=== PATIENT | male | born 1990 | race Hispanic/Latino ===

== ENCOUNTER 2017-03-07 22:44 | Observation (INO) | payer BC ==
[2017-03-07 23:56] LABS: HEMATOCRIT 46.8 % (35.0-51.0); MEAN CELL VOLUME 92.5 fl (80.0-94.0); MEAN CORPUSCULAR HEMOGLOBIN 30.6 pg (27.0-31.0); MEAN CORPUSCULAR HGB CONC 33.1 g/dL (33.0-37.0); RED CELL DISTRIBUTION WIDTH 13.3 % (11.5-14.5)
[2017-03-08 00:13] LABS: ALB/GLOB RATIO 1.4 (1.0-2.1); ALKALINE PHOSPHATASE 52 U/L (38-126); ALT/SGPT 40 U/L (21-72); AST/SGOT 36 U/L (17-59); BILIRUBIN,TOTAL 0.7 mg/dl (0.2-1.3); BLOOD UREA NITROGEN 23 mg/dl (9-20); CALCIUM 10.1 mg/dL (8.4-10.2); CARBON DIOXIDE 29 mmol/L (22-30); CHLORIDE 100 mmol/L (98-107); GFR AFRICAN-AMERICAN > 60; GLUCOSE,RANDOM 99 mg/dL (75-110); POTASSIUM 4.2 MMOL/L (3.6-5.0); SODIUM 142 mmol/l (132-148); TOTAL PROTEIN 7.8 G/DL (6.3-8.2)
--- NOTE | 2017-03-08 01:19 | ED PDOC ---
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 PT has a superficial clot in his leg and was seen by [facility] [facility] but never put on a daily medications. Pt states his sister has the same and had a PE. PT reports his father also having clots in the past. Past Medical History Reviewed: Historical Data, Nursing Documentation, Vital Signs Vital Signs: Last Vital Signs Temp 98 F 03/07/17 22:45 Pulse 50 L 03/07/17 22:45 Resp 18 03/07/17 22:45 BP 140/80 03/07/17 22:45 Pulse Ox 98 03/08/17 01:23 - Medical History PMH: No Chronic Diseases - Surgical History Surgical History: No Surg Hx - Family History Family History: States: No Known Family Hx - Living Arrangements Living Arrangements: With Family - Social History Current smoker - smoking cessation education provided: No - Allergies Allergies/Adverse Reactions: Allergies Allergy/AdvReac Type Severity Reaction Status Date / Time No Known Allergies Allergy Verified 03/07/17 22:45 Review of Systems ROS Statement: Except As Marked, All Systems Reviewed And Found Negative Constitutional: Negative for: Fever, Chills Cardiovascular: Positive for: Chest Pain Respiratory: Negative for: Cough, Shortness of Breath Skin: Negative for: Rash Physical Exam - Reviewed Nursing Documentation Reviewed: Yes Vital Signs Reviewed: Yes - Physical Exam Appears: Positive for: Well, Non-toxic, No Acute Distress Head Exam: Positive for: ATRAUMATIC, NORMAL INSPECTION, NORMOCEPHALIC Skin: Positive for: Normal Color, Warm, DRY Eye Exam: Positive for: Normal appearance ENT: Positive for: Normal ENT Inspection Neck: Positive for: Normal, Painless ROM Cardiovascular/Chest: Positive for: Regular Rate, Rhythm, Chest Non Tender Respiratory: Positive for: CNT, Normal Breath Sounds Gastrointestinal/Abdominal: Positive for: Normal Exam, Bowel Sounds, Soft Back: Positive for: Normal Inspection Extremity: Positive for: Normal ROM Neurologic/Psych: Positive for: Alert, Oriented - Laboratory Results Result Diagrams: 03/07/17 23:53 03/07/17 23:53 - ECG O2 Sat by Pulse Oximetry: 98 Medical Decision Making Medical Decision Making: (+) PE on CT chest. Lovanox ordered. Admission to telemetry. Disposition - Clinical Impression Clinical Impression: Pulmonary embolism - Patient ED Disposition Is Patient to be Admitted: Yes - Disposition Disposition Time: 03:20 Condition: STABLE - Pt Status Changed To: Hospital Disposition Of: Inpatient - Admit Certification Admit to Inpatient:: After my assessment, the patient will require hospitalization for at least two midnights. This is because of the severity of symptoms shown, intensity of services needed, and/or the medical risk in this patient being treated as an outpatient. - POA Present On Arrival: None
[2017-03-08] MEDS ORDERED: Iodixanol 320 mg/ml 50 ml Sol IV ONE (01:38)
[2017-03-08] MEDS ORDERED: Sodium Chloride 0.9% 50 ML IV ONE (01:38)
[2017-03-08] MEDS ORDERED: Enoxaparin 80 mg Syringe SC STA (03:07)
--- NOTE | 2017-03-08 09:47 | CT ---
PROCEDURE: CT Chest with contrast (Pulmonary Angiogram) HISTORY: right pleuritic chest pain COMPARISON: None available. TECHNIQUE: Axial computed tomography images were obtained of the chest in the pulmonary arterial phase of enhancement. Coronal and sagittal reformatted images were created and reviewed. Intravenous contrast dose: Visipaque 320, 95 cc. Radiation dose: Total exam DLP = 406.54 mGy-cm. This CT exam was performed using one or more of the following dose reduction techniques: Automated exposure control, adjustment of the mA and/or kV according to patient size, and/or use of iterative reconstruction technique. FINDINGS: PULMONARY ARTERIES: Multifocal pulmonary emboli identified at the bilateral upper and lower lobes as well as right middle lobe. AORTA: No acute findings. No thoracic aortic aneurysm. LUNGS: Trace scoliosis opacity seen the bilateral lower lobes with remaining airspace clear bilaterally. No discrete pulmonary mass. Central airways are clear throughout. PLEURAL SPACES: Unremarkable. No effusion or pneuomothorax. HEART: Unremarkable. No cardiomegaly. No significant pericardial effusion. LYMPH NODES: No lymphadenopathy. BONES, CHEST WALL: Unremarkable. No fracture or destructive lesion OTHER FINDINGS: Unremarkable. IMPRESSION: Multifocal pulmonary emboli are scattered bilaterally at the upper and lower lobes but seen worst at the right middle and lower lobe pulmonary arteries. Limited ground-glass opacity is nonspecific in the bilateral lower lobes with remainder the examination appearing unremarkable.
[2017-03-08 14:45] VITALS: RESP 20
[2017-03-08] MEDS ORDERED: Enoxaparin 80 mg Syringe SC SCH (16:00)
[2017-03-08 16:09] VITALS: BP 131/77; PULSE 61; TEMP 97.7; O2SAT 99
--- NOTE | 2017-03-08 17:49 | CP.PCM.HP ---
History of Present Illness - History of Present Illness History of Present Illness: This is a 26 y/o male admitted for persistent chest wall pain which got worst. Sought ER evaluation and Ct scan showed multiple bilateral pulmonary embolism Claims that he has a gene mutation for hypercoagulable state and that two members of family( father and sister had PE in the past). He is very athletic and goes to the gym regularly. 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 Past Patient History - Past Social History Smoking Status: Never Smoked - MUSCULOSKELETAL/RHEUMATOLOGICAL Hx Falls: No - PSYCHIATRIC Hx Anxiety: Yes Hx Substance Use: No - SURGICAL HISTORY Hx Surgeries: No - ANESTHESIA Hx Anesthesia: No Meds Allergies/Adverse Reactions: Allergies Allergy/AdvReac Type Severity Reaction Status Date / Time No Known Allergies Allergy Verified 03/07/17 22:45 Results - Vital Signs Recent Vital Signs: Last Vital Signs Temp 97.7 F 03/08/17 16:09 Pulse 61 03/08/17 16:09 Resp 20 03/08/17 16:09 BP 131/77 03/08/17 16:09 Pulse Ox 99 03/08/17 16:09 - Labs Result Diagrams: 03/07/17 23:53 03/07/17 23:53 Labs: Laboratory Results - last 24 hr 03/07/17 03/07/17 03/07/17 23:53 23:53 23:53 WBC 9.0 RBC 5.06 Hgb 15.5 Hct 46.8 MCV 92.5 MCH 30.6 MCHC 33.1 RDW 13.3 Plt Count 147 PT 10.8 INR 1.1 APTT 34.0 Sodium 142 Potassium 4.2 Chloride 100 Carbon Dioxide 29 Anion Gap 18 BUN 23 H Creatinine 1.1 Est GFR ( Amer) > 60 Est GFR (Non-Af Amer) > 60 Random Glucose 99 Calcium 10.1 Total Bilirubin 0.7 AST 36 ALT 40 Alkaline Phosphatase 52 Total Protein 7.8 Albumin 4.6 Globulin 3.2 Albumin/Globulin Ratio 1.4
--- NOTE | 2017-03-09 10:43 | US ---
PROCEDURE: Bilateral lower extremity venous duplex Doppler. HISTORY: r/o DVT COMPARISON: None available. TECHNIQUE: Bilateral common femoral, superficial femoral, popliteal and posterior tibial veins were evaluated. Flow was assessed with color Doppler, compressibility, assessment of phasic flow and augmentation response. FINDINGS: COMMON FEMORAL VEIN: Right CFV: Unremarkable. Left CFV: Unremarkable. SUPERFICIAL FEMORAL VEIN: Right SFV: Unremarkable. Left SFV: Unremarkable. POPLITEAL VEIN: Right Popliteal: Unremarkable. Left Popliteal: There is echogenic thrombus seen within the left popliteal vein which is partially occlusive. POSTERIOR TIBIAL VEIN: Right PTV: Unremarkable. Left PTV: Unremarkable. OTHER FINDINGS: None. IMPRESSION: Partially occlusive thrombus in the left popliteal vein. This agrees with preliminary report provided by the on-call radiologist.
== END 2017-03-08 19:09 | disposition home or self-care (01) ==
LOC: H.ER 22:44 → H.ERHOLD 03-08 03:06 → H.TEL 03-08 04:37
PROVIDERS: ADMIT Family Medicine; ATTEND Family Medicine
DX: I26.99 Other pulmonary embolism without acute cor pulmonale (principal); D68.59 Other primary thrombophilia; F41.9 Anxiety disorder, unspecified; R07.81 Pleurodynia
CPT/HCPCS: 71275; 80053; 85027; 85610; 85730; 93970; 96372; 99285; G0378; J1650; Q9967